=== PATIENT | female | born 1985 | race Caucasian/White ===

== ENCOUNTER 2018-11-20 18:01 | Emergency (ER) | payer OTHER ==
--- NOTE | 2018-11-20 18:17 | ED.ADGEN ---
Past History Past Medical History: UTI Adult General Chief Complaint Chief Complaint ".. I am sure I have a UTI.. I ve had them before... It hurts to urinate.. . I woody have Lupus.. so.. I need to be care about waiting too long to get treated.." HPI HPI Patient is a 33 year old female dependent who presents with complaints of painful dysuria. Patient has had urinary tract infections in the past. Patient denies any travel or specific ill contacts. No concerns for or worries of STD. No vaginal discharge. Patient does have a history of Lupus which she follows at . Has not been on antibiotics recently. Patient normally follows at [place] for primary care. Patient is currently breast-feeding Review of Systems Review of Systems Constitutional: Denies fever or chills [] Eyes: Denies change in visual acuity, redness, or eye pain [] HENT: Denies nasal congestion or sore throat [] Respiratory: Denies cough or shortness of breath [] Cardiovascular: No additional information not addressed in HPI [] GI: Denies abdominal pain, nausea, vomiting, bloody stools or diarrhea [] : Complains of dysuria . Musculoskeletal: Denies back pain or joint pain [] Integument: Denies rash or skin lesions [] Neurologic: Denies headache, focal weakness or sensory changes [] Endocrine: Denies polyuria or polydipsia [] All other systems were reviewed and found to be within normal limits, except as documented in this note. Family History Family History Noncontributory Current Medications Current Medications Current Medications Medications (Trade) Dose Ordered Sig/[facility] Start Time Stop Time Status Last Admin Dose Admin Cephalexin HCl (Keflex) 250 mg STK-MED ONCE 11/20/18 20:29 11/20/18 20:39 DC Phenazopyridine HCl (Pyridium) 200 mg STK-MED ONCE 11/20/18 20:30 11/20/18 20:39 DC Nursing for home medications Allergies Allergies Allergies Coded Allergies Type Severity Reaction Last Updated Verified No Known Drug Allergies 11/20/18 No Physical Exam Physical Exam Constitutional: Moderately acute distress, non-toxic appearance. [] HENT: Normocephalic, atraumatic, bilateral external ears normal, oropharynx moist, no oral exudates, nose normal. [] Eyes: PERRLA, EOMI, conjunctiva normal, no discharge. [] Neck: Normal range of motion, no tenderness, supple, no stridor. [] Cardiovascular:Heart rate regular rhythm, no murmur [] Lungs & Thorax: Bilateral breath sounds clear to auscultation [] Abdomen: Bowel sounds normal, soft, mild suprapubic tenderness, no masses, no pulsatile masses. [] Declines rectal or pelvic exam at this time. Skin: Warm, dry, no erythema, no rash. [] Back: No tenderness, no CVA tenderness. [] Extremities: No tenderness, no cyanosis, no clubbing, ROM intact, no edema. Arthritic changes in hand and surgery scars Neurologic: Alert and oriented X 3, normal motor function, normal sensory function, no focal deficits noted. [] Psychologic: Affect anxious, judgement normal, mood normal. [] Current Patient Data Vital Signs Vital Signs Date Time Temp Pulse Resp B/P (MAP) Pulse Ox O2 Delivery O2 Flow Rate FiO2 11/20/18 18:22 98.2 73 18 97 Room Air Lab Results Laboratory Tests Test 11/20/18 18:10 11/20/18 18:27 Urine Collection Type Unknown Urine Color Yellow Urine Clarity Cloudy Urine pH 6.5 Urine Specific [place] 1.025 Urine Protein 100 mg/dl (NEG-TRACE) Urine Glucose (UA) Neg mg/dL (NEG) Urine Ketones (Stick) Neg mg/dL (NEG) Urine Blood Large (NEG) Urine Nitrite Neg (NEG) Urine Bilirubin Neg (NEG) Urine Urobilinogen Dipstick 0.2 mg/dL (0.2 mg/dL) Urine Leukocyte Esterase Large (NEG) Urine RBC 11-20 /HPF (0-2) Urine WBC Tntc /HPF (0-4) Urine Squamous Epithelial Cells Occ /LPF Urine Bacteria Few /HPF (0-FEW) Urine Test Negative (NEG) Urine Opiates Screen Neg (NEG) Urine Methadone Screen Neg (NEG) Urine Barbiturates Neg (NEG) Urine Phencyclidine Screen Neg (NEG) Urine Amphetamine/Methamphetamine Neg (NEG) Urine Benzodiazepines Screen Neg (NEG) Urine Cocaine Screen Neg (NEG) Urine Cannabinoids Screen Neg (NEG) Urine Ethyl Alcohol Neg (NEG) POC Urine HCG, Qualitative hcg negative (Negative) EKG EKG [] Radiology/Procedures Radiology/Procedures [] Course & Med Decision Making Course & Med Decision Making Pertinent Labs and Imaging studies reviewed. (See chart for details) Patient follow-up urinary cultures. Patient follow-up with primary. Patient to push vitamin C drinks. Patient take Tylenol and ibuprofen for discomfort. She take Keflex 500 mg 3 times a day. Follow-up at [place] . Return if any con cerns. [] Final Impression Final Impression 1. History of Lupus 2. Urinary tract infection[] Dragon Disclaimer Dragon Disclaimer This electronic medical record was generated, in whole or in part, using a voice recognition dictation system. Discharge Summary Visit Information Final Diagnosis Problems Medical Problems: (1) Urinary tract infection Status: Acute Brief Hospital Course Allergies Allergies Coded Allergies Type Severity Reaction Last Updated Verified No Known Drug Allergies 11/20/18 No Vital Signs Vital Signs Date Time Temp Pulse Resp B/P (MAP) Pulse Ox O2 Delivery O2 Flow Rate FiO2 11/20/18 18:22 98.2 73 18 97 Room Air Lab Results Laboratory Tests Test 11/20/18 18:10 11/20/18 18:27 Urine Collection Type Unknown Urine Color Yellow Urine Clarity Cloudy Urine pH 6.5 Urine Specific [place] 1.025 Urine Protein 100 mg/dl (NEG-TRACE) Urine Glucose (UA) Neg mg/dL (NEG) Urine Ketones (Stick) Neg mg/dL (NEG) Urine Blood Large (NEG) Urine Nitrite Neg (NEG) Urine Bilirubin Neg (NEG) Urine Urobilinogen Dipstick 0.2 mg/dL (0.2 mg/dL) Urine Leukocyte Esterase Large (NEG) Urine RBC 11-20 /HPF (0-2) Urine WBC Tntc /HPF (0-4) Urine Squamous Epithelial Cells Occ /LPF Urine Bacteria Few /HPF (0-FEW) Urine Test Negative (NEG) Urine Opiates Screen Neg (NEG) Urine Methadone Screen Neg (NEG) Urine Barbiturates Neg (NEG) Urine Phencyclidine Screen Neg (NEG) Urine Amphetamine/Methamphetamine Neg (NEG) Urine Benzodiazepines Screen Neg (NEG) Urine Cocaine Screen Neg (NEG) Urine Cannabinoids Screen Neg (NEG) Urine Ethyl Alcohol Neg (NEG) Bedside Urine HCG, Qualitative hcg negative (Negative) Brief Hospital Course Ms. Echevarria is a 33 old female who presented with UTI and Lupus. Discharge Information Condition at Discharge: Stable Disposition/Orders: D/C to Home Dischare Medications Current Medications Cephalexin HCl (Keflex) 500 mg 1X ONCE PO Last administered on 11/20/18at 20:36; Admin Dose 500 MG; Start 11/20/18 at 20:30; Stop 11/20/18 at 20:39; Status DC Phenazopyridine HCl (Pyridium) 200 mg 1X ONCE PO Last administered on 11/20/18at 20:35; Admin Dose 200 MG; Start 11/20/18 at 20:30; Stop 11/20/18 at 20:39; Status DC Cephalexin HCl (Keflex) 250 mg STK-MED ONCE .ROUTE ; Start 11/20/18 at 20:29; Stop 11/20/18 at 20:39; Status DC Phenazopyridine HCl (Pyridium) 200 mg STK-MED ONCE .ROUTE ; Start 11/20/18 at 20:30; Stop 11/20/18 at 20:39; Status DC Active Scripts Active Keflex (Cephalexin) 500 Mg Capsule 500 Mg PO TID 7 Days Marci Disclaimer This chart was dictated in whole or in part using Voice Recognition software in a busy, high-work load, and often noisy Emergency Department environment. It may contain unintended and wholly unrecognized errors or omissions. SIS BARBER MD Nov 20, 2018 18:17
[2018-11-20 18:22] VITALS: BP 116/68
[2018-11-20 18:39] LABS: BARBITURATES NEG (NEG); BENZODIAZEPINES NEG (NEG); CANNABINOIDS NEG (NEG); COCAINE NEG (NEG); METHADONE NEG (NEG); OPIATES NEG (NEG); PHENCYCLIDINE NEG (NEG)
[2018-11-20 18:40] LABS: BACTERIA,URINE FEW /HPF (0-FEW); BILIRUBIN,URINE NEG (NEG); CLARITY,URINE CLOUDY; COLOR,URINE YELLOW; GLUCOSE,URINE NEG (NEG); NITRITE,URINE NEG (NEG); SQUAMOUS EPITHELIAL CELL,UR OCC /LPF; UROBILINOGEN,URINE 0.2 mg/dL (0.2 mg/dL); WBC,URINE TNTC /HPF (0-4)
[2018-11-20 18:41] LABS: U PREG PATIENT NEGATIVE (NEG)
[2018-11-20 18:44] LABS: AMPHETAMINE/METHAMPHETAMINE NEG (NEG)
[2018-11-20] MEDS ORDERED: CEPH-264 PO (20:29)
[2018-11-20] MEDS ORDERED: CEPHALEXIN 250 MG CAPSULE ONE (20:29)
[2018-11-20] MEDS ORDERED: PHENAZOPYRIDINE 200 MG TABLET. ONE (20:30)
[2018-11-20] MEDS ORDERED: PHENAZOPYRIDINE 200 MG TABLET. PO ONE (20:30)
[2018-11-20] MEDS ORDERED: CEPHALEXIN 250 MG CAPSULE PO ONE (20:30)
== END 2018-11-20 20:35 | disposition home or self-care (01) ==
LOC: ER 18:01
DX: N39.0 Urinary tract infection, site not specified (principal); Z87.440 Personal history of urinary (tract) infections
CPT/HCPCS: 36415; 80307; 81001; 81025; 87086; 99284

== ENCOUNTER → 2019-06-07 | Day surgery (SDC) | payer OTHER ==
[~2019-06-07] MED LIST: ACETAMINOPHEN 325 MG TABLET PO PRN; ALBUTEROL SULFATE 2.5 MG/3 ML NEBU. NEB PRN; ATROPINE 0.5 MG/5 ML DISP.SYRIN. IV PRN; AZAT50TA20 PO; CEPH-264 PO; DEXL60CA2 PO; IV RINGERS SOLUTION,LACTATED 1,000 ML IV SCH; MAGN400T44 PO; MIDAZOLAM HCL PF 2 MG/2 ML VIAL. IV PRN; ONDANSETRON PF 4 MG/2 ML VIAL. IV PRN; PHENOL ORAL SPRAY 177ML BOTTLE. MM PRN; diphenhydrAMINE 50 MG/ML VIAL IV PRN
[2019-06-07 13:02] LABS: U PREG PATIENT POSITIVE (NEG)
== END ==
LOC: SURG 12:23
PROVIDERS: ATTEND Internal Medicine Gastroenterology
DX: Z53.9 Procedure and treatment not carried out, unspecified reason (principal)
CPT/HCPCS: 81025